=== PATIENT | female | born 1985 | race Caucasian/White ===

== ENCOUNTER 2016-05-11 20:12 | Emergency (ER) | payer MEDICAID ==
[2016-05-11] MEDS ORDERED: NS 1,000 ML IV ONE ×2 (20:32→21:35)
[2016-05-11] MEDS ORDERED: ONDANSETRON 4 MG/2 ML VIAL IVP ONE ×2 (20:32→22:24)
[2016-05-11] MEDS ORDERED: KETOROLAC 15 MG/1 ML SDV IVP ONE (20:47)
[2016-05-11 20:48] LABS: % IMMATURE GRANULYOCYTES 0.4 % (0.0-1.1); ABSOLUTE IMMATURE GRANULOCYTES 0.06 10^3/uL (0.00-0.10); ADD DIFF? NO; ADD MORPH? NO; ADD SCAN? NO; ATYPICAL LYMPHOCYTE FLAG 0 (0-99); FRAGMENT RBC FLAG 0 (0-99); HEMATOCRIT 42.4 % (38.0-47.0); HEMOGLOBIN 13.8 g/dL (12.6-16.3); LEFT SHIFT FLG 0 (0-99); LIPEMIA HEMOLYSIS FLAG 80 (0-99); MEAN CELL HEMOGLOBIN 24.5 pg (27.9-34.1); MEAN CELL HEMOGLOBIN CONCENTR. 32.5 g/dL (32.4-36.7); MEAN CELL VOLUME 75.3 fL (81.5-99.8); MEAN PLATELET VOLUME 10.3 fL (8.7-11.7); PLATELET CLUMPS FLAG 10 (0-99); PLATELET COUNT 230 10^3/uL (150-400); RED BLOOD CELL COUNT 5.63 10^6/uL (4.18-5.33); RED CELL DISTRIBUTION WIDTH 14.3 % (11.5-15.2)
[2016-05-11 21:04] LABS: ALANINE AMINOTRANSFERASE 28 IU/L (9-52); ALBUMIN 3.9 g/dL (3.5-5.0); ALKALINE PHOSPHATASE 114 IU/L (38-126); ANION GAP 12 mEq/L (8-16); ASPARTATE AMINOTRANSFERASE 19 IU/L (14-46); BILIRUBIN,TOTAL 0.6 mg/dL (0.1-1.4); BILIRUBIN-CONJUGATED 0.3 mg/dL (0.0-0.5); BILIRUBIN-UNCONJUGATED 0.3 mg/dL (0.0-1.1); CARBON DIOXIDE 25 mEq/l (22-31); CHLORIDE 102 mEq/L (97-110); CREATININE 0.8 mg/dL (0.6-1.0); GLOMERULAR FILTRATION RATE > 60; GLUCOSE 96 mg/dL (70-100); SODIUM 139 mEq/L (134-144); TOTAL PROTEIN 7.2 g/dL (6.3-8.2)
[2016-05-11 21:29] LABS: COLOR YELLOW; LEUKOCYTE ESTERASE,URINE NEGATIVE (NEGATIVE); NITRITE,URINE NEGATIVE (NEGATIVE)
[2016-05-11 21:36] LABS: MUCUS 1+ /lpf (NONE-1+); WBC,URINE NONE SEEN /hpf (0-3)
[2016-05-11 21:37] LABS: BACTERIA 1+ /hpf (NONE SEEN)
[2016-05-11] MEDS ORDERED: ONDANSETRON 4MG PREPACK#2 BTL TAKEHOME ONE (22:21)
--- NOTE | 2016-05-11 22:21 | UCPHY ---
H & P Patient Type: Established Chief Complaint Nursing Narrative: LUQ pain started at 4pm with vomiting. Time Seen by Provider: 05/11/16 20:32 HPI/ROS: This patient complains of left upper quadrant pain described as crampy in nature followed by vomiting. She has intermittent mild epigastric pain as well that does not radiate anywhere. Her left upper quadrant pain started at 4:00 p.m. followed by the vomiting. She has ongoing nausea currently. She reports that the left upper quadrant pain seems to diminish about 10 minutes after vomiting. She notes no other exacerbating factors. She developed 1 episode of loose stools just before arrival described as loose brown diarrhea. ROS: No fevers. No other constitutional symptoms. HEENT: No recent cold symptoms. No sore throat. Pulmonary: No coughing. No chest pain. Cardiovascular: No lightheadedness. GI: No lower belly pain. No hemoptysis. No dark tarry stools. : No burning with urination. Her last menstrual period was more than a month ago on March 28, 2016. She reports she has occasional irregular with her menses. 10 point ROS is otherwise negative. Source: Patient Exam Limitations: No limitations - Personal History LMP (Females 10-55): 8-14 Days Ago Tetanus Vaccine Date: 2014 - Medical/Surgical History PMH: Morbid obesity Hx Asthma: No Hx Chronic Respiratory Disease: No Hx Diabetes: No Hx Cardiac Disease: No Hx Renal Disease: No Hx Cirrhosis: No Hx Alcoholism: No Hx HIV/AIDS: No Hx Splenectomy or Spleen Trauma: No Other PMH: hypothyroidism,hysteroscopy - Family History Significant Family History: No pertinent family hx - Social History Smoking Status: Never smoked Alcohol Use: Rarely Drug Use: None Additional Social History: No recent foreign travel or suspect food. - Physical Exam Exam: Notable for mild tachycardia on arrival 114 but other vital signs are normal. General Appearance: Alert, no distress. Eyes: Pupils equal and round no pallor or injection. ENT, Mouth: Mucous membranes moist. Respiratory: There are no retractions, lungs are clear to auscultation. Cardiovascular: Regular rate and rhythm. Gastrointestinal: Normoactive, soft, mild left upper quadrant tenderness without obvious splenomegaly. No organomegaly is noted. No guarding or rebound. No lower belly tenderness. Back: No CVA tenderness. Neurological: Alert with no focal deficits. Skin: Warm and dry, no rashes. Musculoskeletal: Neck is supple nontender. Extremities are symmetrical, full range of motion. Psychiatric: Mood and affect are normal. DIFFERENTIAL DIAGNOSIS: After history and physical exam differential diagnosis was considered for viral gastroenteritis with crampy pain. Dehydration. Rule out UTI. Rule out ureteral stone, Constitutional: Initial Vital Signs Temperature (C) 37.6 C 05/11/16 20:35 Heart Rate 114 H 05/11/16 20:35 Respiratory Rate 18 05/11/16 20:35 Blood Pressure 146/84 H 05/11/16 20:35 O2 Sat (%) 97 05/11/16 20:35 O2 Delivery Mode Room Air Allergies/Adverse Reactions: No Known Allergies Allergy (Verified 05/11/16 20:38) Home Medications: Medication Instructions Recorded Levothyroxine 11/14/14 Ondansetron Odt [Zofran Odt] 4 - 8 mg PO Q4PRN PRN #4 tab 05/11/16 Medical Decision Making - Diagnostics Imaging: CT abdomen pelvis without IV contrast rule out ureteral stone: Borderline splenomegaly but no change from [address] Jacobo-radiologist who read the CT scan. No ureteral stone. No other abnormalities. ED Course/Re-evaluation: IV normal saline bolus Zofran with resolution of nausea and vomiting Toradol with improvement in discomfort Her CBC reveals mild leukocytosis. Her test is negative. Her chemistries including LFTs and lipase are normal. Urinalysis revealed hematuria which prompted the workup to rule out ureteral stone. No convincing findings in the urinalysis for UTI. On repeat examination after initial meds and hydration patient's tachycardia is resolved and she no longer has significant tenderness. I counseled her regarding her benign findings. She does not have a surgical abdomen or other concerning findings in the is safe for discharge home presumptive diagnosis of a viral gastroenteritis causing cramping pain. The cause of her microscopic hematuria remains unclear. She warrants follow-up with primary care physician for recheck regarding the microscopic hematuria. - Data Points Laboratory Results: Laboratory Results 05/11/16 20:40 05/11/16 20:40 05/11/16 05/11/16 05/11/16 21:25 20:40 20:40 WBC RBC Hgb Hct MCV MCH MCHC RDW Plt Count MPV Neut % (Auto) Lymph % (Auto) [place] % (Auto) Eos % (Auto) Baso % (Auto) Nucleat RBC Rel Count Absolute Neuts (auto) Absolute Lymphs (auto) Absolute Monos (auto) Absolute Eos (auto) Absolute Basos (auto) Absolute Nucleated RBC Immature Gran % Immature Gran # Sodium 139 mEq/L mEq/L (134-144) Potassium 4.0 mEq/L mEq/L (3.5-5.2) Chloride 102 mEq/L mEq/L (97-110) Carbon Dioxide 25 mEq/l mEq/l (22-31) Anion Gap 12 mEq/L mEq/L (8-16) BUN 11 mg/dL mg/dL (7-23) Creatinine 0.8 mg/dL mg/dL (0.6-1.0) Estimated GFR > 60 Glucose 96 mg/dL mg/dL (70-100) Calcium 9.0 mg/dL mg/dL (8.5-10.4) Total Bilirubin 0.6 mg/dL mg/dL (0.1-1.4) Conjugated Bilirubin 0.3 mg/dL mg/dL (0.0-0.5) Unconjugated Bilirubin 0.3 mg/dL mg/dL (0.0-1.1) AST 19 IU/L IU/L (14-46) ALT 28 IU/L IU/L (9-52) Alkaline Phosphatase 114 IU/L IU/L (38-126) Total Protein 7.2 g/dL g/dL (6.3-8.2) Albumin 3.9 g/dL g/dL (3.5-5.0) Lipase 43.0 IU/L IU/L (23-300) Beta HCG, Qual NEGATIVE Urine Color YELLOW Urine Appearance HAZY Urine pH 5.0 (5.0-7.5) Ur Specific [place] >= 1.030 (1.002-1.030) Urine Protein NEGATIVE (NEGATIVE) Urine Ketones NEGATIVE (NEGATIVE) Urine Blood 3+ H (NEGATIVE) Urine Nitrate NEGATIVE (NEGATIVE) Urine Bilirubin NEGATIVE (NEGATIVE) Urine Urobilinogen 0.2 EU EU (0.2-1.0) Ur Leukocyte Esterase NEGATIVE (NEGATIVE) Urine RBC 10-15 /hpf H /hpf (0-3) Urine WBC NONE SEEN /hpf /hpf (0-3) Ur Epithelial Cells 3+ /lpf H /lpf (NONE-1+) Urine Bacteria 1+ /hpf H /hpf (NONE SEEN) Urine Mucus 1+ /lpf /lpf (NONE-1+) Ur Culture Indicated? NOT INDICATED (NI) Urine Glucose NEGATIVE (NEGATIVE) 05/11/16 20:40 WBC 14.64 10^3/uL H 10^3/uL (3.80-9.50) RBC 5.63 10^6/uL H 10^6/uL (4.18-5.33) Hgb 13.8 g/dL g/dL (12.6-16.3) Hct 42.4 % % (38.0-47.0) MCV 75.3 fL L fL (81.5-99.8) MCH 24.5 pg L pg (27.9-34.1) MCHC 32.5 g/dL g/dL (32.4-36.7) RDW 14.3 % % (11.5-15.2) Plt Count 230 10^3/uL 10^3/uL (150-400) MPV 10.3 fL fL (8.7-11.7) Neut % (Auto) 83.4 % H % (39.3-74.2) Lymph % (Auto) 11.6 % L % (15.0-45.0) [place] % (Auto) 3.7 % L % (4.5-13.0) Eos % (Auto) 0.8 % % (0.6-7.6) Baso % (Auto) 0.1 % L % (0.3-1.7) Nucleat RBC Rel Count 0.0 % % (0.0-0.2) Absolute Neuts (auto) 12.20 10^3/uL H 10^3/uL (1.70-6.50) Absolute Lymphs (auto) 1.70 10^3/uL 10^3/uL (1.00-3.00) Absolute Monos (auto) 0.54 10^3/uL 10^3/uL (0.30-0.80) Absolute Eos (auto) 0.12 10^3/uL 10^3/uL (0.03-0.40) Absolute Basos (auto) 0.02 10^3/uL 10^3/uL (0.02-0.10) Absolute Nucleated RBC 0.00 10^3/uL 10^3/uL (0-0.01) Immature Gran % 0.4 % % (0.0-1.1) Immature Gran # 0.06 10^3/uL 10^3/uL (0.00-0.10) Sodium Potassium Chloride Carbon Dioxide Anion Gap BUN Creatinine Estimated GFR Glucose Calcium Total Bilirubin Conjugated Bilirubin Unconjugated Bilirubin AST ALT Alkaline Phosphatase Total Protein Albumin Lipase Beta HCG, Qual Urine Color Urine Appearance Urine pH Ur Specific [place] Urine Protein Urine Ketones Urine Blood Urine Nitrate Urine Bilirubin Urine Urobilinogen Ur Leukocyte Esterase Urine RBC Urine WBC Ur Epithelial Cells Urine Bacteria Urine Mucus Ur Culture Indicated? Urine Glucose Medications Given: Discontinued Medications Sodium Chloride (Ns) 1,000 mls @ 0 mls/hr IV ONCE ONE PRN Reason: Wide Open Stop: 05/11/16 20:33 Last Admin: 05/11/16 20:35 Dose: 1,000 mls Sodium Chloride (Ns) 1,000 mls @ 0 mls/hr IV ONCE ONE PRN Reason: Wide Open Stop: 05/11/16 21:36 Last Admin: 05/11/16 21:35 Dose: 1,000 mls Ketorolac Tromethamine (Toradol) 15 mg IVP EDNOW ONE Stop: 05/11/16 20:48 Last Admin: 05/11/16 20:57 Dose: 15 mg Ondansetron HCl (Zofran) 4 mg IVP EDNOW ONE Stop: 05/11/16 20:33 Last Admin: 05/11/16 20:50 Dose: 4 mg Ondansetron HCl (Zofran Odt 4 Mg Prepack#2) 1 btl TAKEHOME EDNOW ONE Stop: 05/11/16 22:22 Last Admin: 05/11/16 22:35 Dose: 1 btl Ondansetron HCl (Zofran) 4 mg IVP EDNOW ONE Stop: 05/11/16 22:25 Last Admin: 05/11/16 22:30 Dose: 4 mg Departure - Departure Disposition: Home, Routine, Self-Care Clinical Impression: Dehydration, Microscopic hematuria, LUQ abdominal pain Vomiting Qualifiers: Vomiting type: unspecified Vomiting Intractability: non-intractable Nausea presence: with nausea Qualified Code(s): R11.2 - Nausea with vomiting, unspecified Condition: Good Instructions: Acute Nausea and Vomiting (ED), Hematuria (ED) Additional Instructions: Diagnoses: 1. Vomiting 2. Dehydration 3. Microscopic hematuria 4. The upper quadrant pain Your abdominal CT looks normal tonight. Plan: Drink plenty fluids Zofran for nausea if needed Ibuprofen and/or Tylenol for discomfort if needed Follow up with primary care physician this week to recheck and confirm that the hematuria has resolved. Go to the emergency department for any significant worsening despite the treatment plan. Referrals: NONE *PRIMARY CARE P,. [Primary Care Provider] - As per Instructions Prescriptions: Ondansetron Odt [Zofran Odt] 4 - 8 mg PO Q4PRN PRN #4 tab PRN Reason: Vomiting - PQRS PQRS Measurement: NA
[2016-05-11 22:47] VITALS: BP 142/86; PULSE 96; RESP 14; TEMP 99; O2SAT 95
== END 2016-05-11 22:42 | disposition home or self-care (01) ==
LOC: CED 20:12
DX: E86.0 Dehydration (principal); R31.29 Other microscopic hematuria; R10.12 Left upper quadrant pain; R11.2 Nausea with vomiting, unspecified
CPT/HCPCS: 74176-PO; 80048-PO; 80076-PO; 81003-PO; 81015-PO; 83690-PO; 84703-PO; 85025-PO; 96361-PO; 96374-PO; 96375-PO; 96376-PO; 99215-PO; G0463-PO; J1885; J2405

== ENCOUNTER 2017-05-30 11:15 | Emergency (ER) | payer MEDICAID ==
[2017-05-30] MEDS ORDERED: NS 1,000 ML IV ONE (11:45)
[2017-05-30 12:02] LABS: PLATELET COUNT 215 10^3/uL (150-400)
--- NOTE | 2017-05-30 12:20 | EDPHY ---
H & P Time Seen by Provider: 05/30/17 11:35 HPI/ROS: This G4, P3 patient with history 1 miscarriage and history of heavy menses presents with the heaviest menses that she has had that started last night approximately 1 month after prior menses with heavy bleeding and passage of blood clots. She reports that she went through a pad every hour this morning prior to arrival. She feels mild lightheadedness when standing associated with the symptoms. She came in by private vehicle for further evaluation due to the symptoms. She admits that she was given a prescription for Ortho Tri-Cyclen by her OBGYN to start taking to help decrease the heavy bleeds but has not filled that prescription. ROS: Constitutional: No significant fatigue. No fevers. HEENT: No complaints line pulmonary: No dyspnea Cardiovascular: No heart palpitations. No chest pain. GI: No abdominal pain. No nausea or vomiting. : No pelvic pain. She denies any vaginal discharge prior to the onset of bleeding. She denies any dysuria. No vaginal pain. She did have unprotected sex within the last month but does not think she is . No STD risk factors. She is monogamous. Integumentary: No pallor or diaphoresis 10 point ROS is otherwise negative. Past Medical/Surgical History: Obesity with 1 miscarriage Heavy menses Smoking Status: Never smoked Physical Exam: General Appearance: Pleasant obese 32-year-old female Alert, no distress. Eyes: Pupils equal and round no pallor or injection. ENT, Mouth: Mucous membranes moist. Respiratory: There are no retractions, lungs are clear to auscultation. Cardiovascular: Regular rate and rhythm. Gastrointestinal: Normoactive, soft, nontender Neurological: GCS 15 Skin: Warm and dry, no rashes. No pallor. Psychiatric: Mood and affect are normal DIFFERENTIAL DIAGNOSIS: After history and physical exam differential diagnosis was considered for dysfunctional uterine bleeding, , ectopic , anemia Constitutional: Initial Vital Signs Temperature (C) 36.6 C 05/30/17 11:44 Heart Rate 96 05/30/17 11:44 Respiratory Rate 20 05/30/17 11:44 Blood Pressure 183/102 H 05/30/17 11:44 O2 Sat (%) 97 05/30/17 11:44 O2 Delivery Mode Room Air Allergies/Adverse Reactions: No Known Allergies Allergy (Verified 05/11/16 20:38) Home Medications: Medication Instructions Recorded Norethindrone Acetate [Aygestin 5 mg PO AD #22 tab 05/30/17 5mg (RX)] MDM/Departure - MDM Medications Given: Discontinued Medications Sodium Chloride (Ns) 1,000 mls @ 0 mls/hr IV EDNOW ONE; Wide Open PRN Reason: Protocol Stop: 05/30/17 11:46 Last Admin: 05/30/17 12:00 Dose: 1,000 mls ED Course/Re-evaluation: IV normal saline bolus CBC: No anemia. Serum test is negative Discussion: Patient with heavy bleeding from dysfunctional uterine bleeding. We ruled out . No anemia. No other concerning findings. I counseled patient regarding dysfunctional uterine bleeding with plan to do from loaded Aygestin 5 mg tabs -4 times a day for 3 days, three times daily for 2 days, twice daily for 2 days followed by starting Ortho Tri-Cyclen. She will follow up with her OBGYN for any ongoing symptoms. She understands need to return emergency department should she develop worsening despite the treatment plan. - Depart Disposition: Home, Routine, Self-Care Clinical Impression: Dysfunctional uterine bleeding Condition: Good Instructions: Dysfunctional Uterine Bleeding (ED) Additional Instructions: Diagnosis: Dysfunctional uterine bleeding Plan: Aygestin as prescribed. When you finish that course, then he could start year Ortho Tri-Cyclen - 1 tab a day Follow up with OBGYN Return for any significant worsening despite treatment plan. Prescriptions: Norethindrone Acetate [Aygestin 5mg (RX)] 5 mg PO AD #22 tab Referrals: Nadine Edouard MD [Primary Care Provider] - As per Instructions
[2017-05-30 12:32] VITALS: BP 131/67
== END 2017-05-30 12:31 | disposition home or self-care (01) ==
LOC: CED 11:15
DX: N93.8 Other specified abnormal uterine and vaginal bleeding (principal); E86.9 Volume depletion, unspecified
CPT/HCPCS: 84703-PO; 85025-PO

== ENCOUNTER 2017-11-30 09:47 | Emergency (ER) | payer OTHER ==
--- NOTE | 2017-11-30 12:48 | EDPHY ---
H & P Stated Complaint: +HCG , has been spotting x1 week,mild abd cramping Time Seen by Provider: 11/30/17 09:50 HPI/ROS: 32-year-old female presents complaining of having brownish blood on toilet paper when she wipes, and having tested positive for urine test 2 days ago. She believes her last period was approximately 3 weeks ago but states her periods are quite irregular and she is unsure. She decided to test for because she felt some breast swelling. No nausea no vomiting no fevers no chills fulls no heavy vaginal bleeding. No abdominal cramping Review of systems As per HPI General no fever no chills no weakness HEENT no eye pain no eye discharge. No eye redness, no sore throat Respiratory no cough, no shortness of breath Cardiac no chest pain, no peripheral edema GI no abdominal pain, no diarrhea, no constipation, no nausea, no vomiting no flank pain, no hematuria, no dysuria, vaginal spotting Musculoskeletal no myalgias, no joint pain Heme no easy bruising, no easy bleeding Endo no polyuria, no polydipsia Skin no rashes, no pruritus Neuro no syncope, no dizziness, no headaches Psych is no suicidal ideation, no homicidal ideation Source: Patient Exam Limitations: No limitations - Personal History LMP (Females 10-55): Tetanus Vaccine Date: 2014 - Medical/Surgical History Hx Asthma: No Hx Chronic Respiratory Disease: No Hx Diabetes: No Hx Cardiac Disease: No Hx Renal Disease: No Hx Cirrhosis: No Hx Alcoholism: No Hx HIV/AIDS: No Hx Splenectomy or Spleen Trauma: No Other PMH: Med hx-hypothyroidism. Surg-D&C,hysteroscopy - Family History Significant Family History: No pertinent family hx - Social History Smoking Status: Never smoked Alcohol Use: Occasionally Drug Use: None - Physical Exam Exam: 32-year-old female alert and oriented no acute distress nontoxic appearance afebrile HEENT atraumatic normocephalic, extraocular muscles intact, anicteric Oropharynx negative for erythema negative exudate, tolerating her own secretions Neck supple no meningismus Lungs clear to auscultation bilaterally Heart regular rate and rhythm without murmur rub or gallop Abdomen nondistended normoactive bowel sounds soft nontender Back no CVA tenderness, no step-offs, no spinal tenderness Extremities no cyanosis clubbing or edema pt declined pelvic exam at this time, but stated that she has no active bleeding , but had some brownish color on toilet paper. Constitutional: Initial Vital Signs Temperature (C) 36.5 C 11/30/17 10:11 Heart Rate 98 11/30/17 10:11 Respiratory Rate 16 11/30/17 10:11 Blood Pressure 158/107 H 11/30/17 10:11 O2 Sat (%) 98 11/30/17 10:11 O2 Delivery Mode Room Air Allergies/Adverse Reactions: No Known Allergies Allergy (Verified 11/30/17 10:10) Home Medications: Medication Instructions Recorded NK [No Known Home Meds] 11/30/17 Medical Decision Making ED Course/Re-evaluation: Pt seen and evaluated for positive test this week with some possible spotting. [facility] no iup type and rh o neg imp extremely early , 1-2 weeks given no actual bleeding, no rhogham given plan f/u with ob/gyne Differential Diagnosis: Differential diagnosis considered but not limited to: Completed miscarriage, threatened miscarriage, early , blighted ovum, ectopic , molar - Data Points Point of Care Test Results: CBC CBC Collection Date 11/30/17 CBC Collection Time 10:42 WBC 7.6 RBC 5.06 HGB 13.0 HCT 38.9 PLT 172 Neut # 5.6 Neut 73.5 LYMPH # 1.6 LYMPH 21.4 Other WBC # 0.4 Other WBC 5.1 MCV 76.9 Urine Collection Date 11/30/17 Collection Time 10:07 HCG Results Positive Departure - Departure Disposition: Home, Routine, Self-Care Clinical Impression: Early stage of Condition: Good Instructions: First Trimester (ED) Referrals: Nadine Edouard MD [Primary Care Provider] - As per Instructions
[2017-11-30 13:09] VITALS: BP 138/78
== END 2017-11-30 13:05 | disposition home or self-care (01) ==
LOC: CED 09:47
DX: O20.8 Other hemorrhage in early pregnancy (principal)